=== PATIENT | male | born 1965 | race Caucasian/White ===

== ENCOUNTER 2025-02-01 14:09 | Emergency (ER) | payer OTHER, SELFPAY ==
[2025-02-01] VITALS (10 sets, daily range): BP systolic 79–130; BP diastolic 59–84; PULSE 72–107; RESP 11–16; TEMP 36.6–36.7; O2SAT 97–100; BMI 31.6
--- NOTE | 2025-02-01 14:14 | ECG_ITS ---
APPROVED REPORT Exam: Resting ECG HR:83 bpm ECG Measurements Heart Rate 83 AXES WV 168 P 50 QRSd 134 QRS -66 QT 401 T 42 QTc 441 Conclusion SINUS RHYTHM RIGHT BUNDLE BRANCH BLOCK [120+ ms QRS DURATION, UPRIGHT V1, 40+ ms S IN I/aVL/V4/V5/V6] LEFT ANTERIOR FASCICULAR BLOCK [QRS AXIS <= -45, QR IN I, RS IN II] Electronically signed by : SHANTEL BASSETT, 02/06/2025 13:28:33
--- NOTE | 2025-02-01 14:31 | CT_ITS ---
PROCEDURE INFORMATION: Exam: CTA Neck With Contrast Exam date and time: 02/01/2025 3:28 PM Age: 59 years old Clinical indication: Other: Balance issue, weakness, presyncope TECHNIQUE: Imaging protocol: Computed tomographic angiography of the neck with contrast. Exam focused on the cervical segments of the vasculature. 3D rendering (Not supervised by radiologist): MIP and/or 3D reconstructed images were created by the technologist. Radiation optimization: All CT scans at this facility use at least one of these dose optimization techniques: automated exposure control; mA and/or kV adjustment per patient size (includes targeted exams where dose is matched to clinical indication); or iterative reconstruction. Contrast material: ISOUVE 370; Contrast volume: 80 ml; Contrast route: INTRAVENOUS (IV); COMPARISON: CT HEAD/BRAIN WO CON 02/01/2025 3:26 PM FINDINGS: Right common carotid artery: No stenosis. No dissection or occlusion. Right internal carotid artery: No stenosis of the extracranial segment. No dissection or occlusion. Mild proximal right ICA noncalcified plaque. Right external carotid artery: No occlusion or stenosis of the origin. Left common carotid artery: No stenosis. No dissection or occlusion. Left internal carotid artery: Proximal left ICA noncalcified atherosclerosis, prominent for age causing up to mild, 40% stenosis, image 84 series 3, image 62 series 5. This segmental narrowing is approximately 1.3 cm from the bifurcation. Left external carotid artery: No occlusion or stenosis of the origin. Right vertebral artery: No stenosis. No dissection or occlusion. Left vertebral artery: To the extent visualized, patent cervical left vertebral artery. A portion of the V1 segment is not visualized due to artifact. Soft tissues: Normal. No significant soft tissue swelling. Bones/joints: [id number] cervical spine degenerative changes. Lungs: Calcified granulomata in the lung apices. IMPRESSION: 1. No acute vascular findings in the neck. 2. Mild, up to 40% left ICA stenosis due to noncalcified plaque. Proximal left ICA noncalcified plaque is prominent for age. 3. 0% right ICA stenosis. 4. To the extent visualized, the vertebral arteries are patent without stenoses. REFERENCES: NASCET CRITERIA. The degree of stenosis in the cervical segment of the internal carotid artery is based on NASCET criteria. Normal is no stenosis. Mild is less than 50% stenosis. Moderate is 50-69% stenosis. Severe is 70% to 99% stenosis. Total occlusion is no detectable patent lumen.
--- NOTE | 2025-02-01 14:31 | CT_ITS ---
PROCEDURE INFORMATION: Exam: CTA Head With Contrast, Arteriography Exam date and time: 02/01/2025 3:28 PM Age: 59 years old Clinical indication: Other: Balance issue, weakness, presyncope TECHNIQUE: Imaging protocol: Computed tomographic angiography of the head with contrast. Exam focused on the arteries. 3D rendering (Not supervised by radiologist): MIP and/or 3D reconstructed images were created by the technologist. Radiation optimization: All CT scans at this facility use at least one of these dose optimization techniques: automated exposure control; mA and/or kV adjustment per patient size (includes targeted exams where dose is matched to clinical indication); or iterative reconstruction. Contrast material: ISO 370; Contrast volume: 80 ml; Contrast route: INTRAVENOUS (IV); COMPARISON: CT HEAD/BRAIN WO CON 02/01/2025 3:26 PM FINDINGS: ANTERIOR CIRCULATION: Right internal carotid artery: The right ICA demonstrates mild atherosclerosis. Stenosis is mild segmentally in the petrous segment. Right middle cerebral artery: No occlusion or significant stenosis. No aneurysm. Right anterior cerebral artery: No occlusion or significant stenosis. No aneurysm. Left internal carotid artery: The left ICA demonstrates trace atherosclerosis not contributing to stenosis. Left middle cerebral artery: The left middle cerebral artery demonstrates a 3 mm severe segmental stenosis in the M1 segment. Otherwise mild M1 and M2 atherosclerosis. Left anterior cerebral artery: No occlusion or significant stenosis. No aneurysm. POSTERIOR CIRCULATION: Right vertebral artery: No occlusion or significant stenosis. No aneurysm. Left vertebral artery: No occlusion or significant stenosis. No aneurysm. Basilar artery: No occlusion or significant stenosis. No aneurysm. Right posterior cerebral artery: No occlusion or significant stenosis. No aneurysm. Left posterior cerebral artery: No occlusion or significant stenosis. No aneurysm. Brain: No definite mass, mass effect, or midline shift. Cerebral ventricles: No ventriculomegaly. Bones/joints: Unremarkable. No acute fracture. Soft tissues: Unremarkable. IMPRESSION: 1. No proximal intracranial arterial occlusion seen. 2. A severe segmental stenosis of the left MCA in the M1 segment.
--- NOTE | 2025-02-01 14:31 | CT_ITS ---
PROCEDURE INFORMATION: Exam: CTA Chest With Contrast Exam date and time: 02/01/2025 3:31 PM Age: 59 years old Clinical indication: Other: Balance issue, weakness, presyncope TECHNIQUE: Imaging protocol: Computed tomographic angiography of the chest with contrast. Exam focused on the arteries. 3D rendering (Not supervised by radiologist): MIP and/or 3D reconstructed images were created by the technologist. Radiation optimization: All CT scans at this facility use at least one of these dose optimization techniques: automated exposure control; mA and/or kV adjustment per patient size (includes targeted exams where dose is matched to clinical indication); or iterative reconstruction. Contrast material: ISOVUE 370; Contrast volume: 70 ml; Contrast route: INTRAVENOUS (IV); COMPARISON: CT ANGIO NECK 02/01/2025 3:28 PM FINDINGS: Pulmonary arteries: No PE. No evidence of cardiac strain. Aorta: Unremarkable. No aortic aneurysm. No aortic dissection. Lungs: Mild diffuse interlobular and intra lobular septal thickening. No distinct nodules or infiltrates. Pleural spaces: Unremarkable. No pneumothorax. No pleural effusion. Heart: Normal heart size. No pericardial fluid. Lymph nodes: Unremarkable. No enlarged lymph nodes. Adrenal glands: Thickened, nodular left adrenal gland without distinct measurable lesion. Attenuating at 43 Hounsfield units. Right gland is unremarkable. Bones/joints: Small (2-3 mm) sclerotic foci in the anterior T2 vertebral body, right posterior 5th rib, right lateral 7th rib. In the proximal sternal body. In the right acromion. Left humeral head. Soft tissues: Otherwise, no acute osseous or soft tissue abnormality. IMPRESSION: 1. Mild interstitial pulmonary edema. No distinct nodules or infiltrates. 2. Small (2-3 mm) sclerotic foci in the anterior T2 vertebral body, right posterior 5th rib, right lateral 7th rib. In the proximal sternal body. In the right acromion. Left humeral head. Nonspecific. May represent bone islands. If there is history of malignancy, may represent sclerotic metastatic disease. Recommend correlation.
--- NOTE | 2025-02-01 14:31 | CT_ITS ---
PROCEDURE INFORMATION: Exam: CT Head Without Contrast Exam date and time: 02/01/2025 3:26 PM Age: 59 years old Clinical indication: Other: Balance issue, weakness, presyncope TECHNIQUE: Imaging protocol: Computed tomography of the head without contrast. Radiation optimization: All CT scans at this facility use at least one of these dose optimization techniques: automated exposure control; mA and/or kV adjustment per patient size (includes targeted exams where dose is matched to clinical indication); or iterative reconstruction. COMPARISON: No relevant prior studies available. FINDINGS: Brain: Mature appearing most likely chronic left parietooccipital infarcts. No acute evolving territorial infarct or intracranial hemorrhage seen. Cerebral ventricles: There is a cavum septum pellucidum and cavum vergae, normal variant. Mild ex vacuo enlargement of the atrium and occipital horn of the left lateral ventricle. Pituitary gland and sella: A 3 mm hypodense likely cyst in the left aspect of the pituitary gland. Paranasal sinuses: [id number] mucosal thickening. Prior endoscopic sinus surgery. No fluid levels. Mastoid air cells: Visualized mastoid air cells are well aerated. Bones: Unremarkable. No acute fracture. Soft tissues: Unremarkable. IMPRESSION: 1. No acute intracranial abnormality seen. 2. 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
[2025-02-01 14:41] LABS: Basophils # 0.1 K/mm3 (0-0.2); Basophils % 0.4 % (0.1-2.0); Eosinophils # 0.2 Kmm3 (0.0-0.4); Eosinophils % 1.5 % (0.1-12.0); Hematocrit 37.9 % (42.0-52.0); Hemoglobin 11.5 g/dL (14.1-18.0); Immature Granulocytes # 0.06 10^3uL; Immature Granulocytes % 0.5 %; Lymphocytes # 2.2 K/mm3 (0.7-4.5); Lymphocytes % 18.7 % (10-50); Mean Corpuscular HGB Conc 30.3 g/dL (31.8-35.4); Mean Corpuscular Hemoglobin 25.8 pg (27.0-31.2); Mean Corpuscular Volume 85.2 fl (80-94); Mean Platelet Volume 9.2 fl (7.4-10.4); Monocytes # 0.8 K/mm3 (0.1-1.0); Monocytes % 7.1 % (1.7-9.3); Neutrophils # 8.4 K/mm3 (1.8-7.8); Neutrophils % 71.8 % (37.0-80.0); Nucleated Red Blood Cells # 0 10^3/uL; Nucleated Red Blood Cells % 0 %; Platelet Count 500 K/mm3 (142-424); Red Blood Count 4.45 M/mm3 (4.60-6.20); Red Cell Distribution Width 14.3 % (11.5-17.5); White Blood Count 11.7 K/mm3 (4.8-10.8)
--- NOTE | 2025-02-01 14:55 | HMH.EDGENADL ---
Discharge Plan Disposition Patient Disposition: Home, Self-Care Condition: Good Referrals Follow up/Referrals: Kendrick Holly APRN [Primary Care Provider] - See instructions Activity Restrictions/Add. Instructions Additional Instructions/Restrictions: As we discussed, please make sure you are drinking plenty of liquids and having at least 3 meals throughout the day containing protein. Please follow-up with your primary care doctor as well as your neurologist. Please return with any new or worsening symptoms. Clinical Impressions Clinical Impression: Orthostatic hypotension Print Language Print Language: Yi Discharge ED Provider: Jake Irene General Adult HPI <Tamiko Herron DO - Last Filed: 02/01/25 15:04> General Chief complaint: Dizziness Stated complaint: Poss. CVA Time Seen by Provider: 02/01/25 14:18 Mode of Arrival: Ambulatory Source of Information: Patient Description of Symptoms (Recalled from ER Triage Doc. by RN): patient states about 30 mins ago [place] and whe he got up he suddenly became lightheaded and dizzy. he reports the last 3-4 days he has had dizzines and been lethargic History of Present Illness HPI narrative: This patient is a 59-year-old male with history of prior CVA (October) with reported residual language and memory deficits, orthostatic hypotension on midodrine, T2DM presenting to the emergency department for evaluation with concern for dizziness and possible syncopal episode today. According to the patient's family, he has had issues with orthostatic hypotension in the past and it was felt to be related to medications he was on including amitriptyline for restless leg. They had stopped this and he had been doing okay, but it acutely started again over the last several days and he has been very weak with lightheadedness especially when he gets up and gets moving around. He denies any true vertiginous type symptoms. He states that he feels very lightheaded and like he is going to pass out. Today, his notes that he became very [place] and had an episode in which he was out of it with reported twitching of his face. His states that with his history of strokes, she became panicked. This only lasted for a few seconds and then he returned to his normal baseline, but he was very generally weak walking to the car. No headaches, visual disturbance, unilateral numbness or tingling, chest pain, shortness of breath, abdominal pain, nausea, vomiting or changes in bowel movements, or other concerns. Related Data Allergies Allergy/AdvReac Type Severity Reaction Status Date / Time INGREDIENT: NO KNOWN - NO Allergy Unknown Uncoded 08/28/17 15:03 KNOWN DRUG ALLERGY PFSH <Tamiko Herron DO - Last Filed: 02/01/25 15:04> [facility] Disclaimer: The information contained in this section may have been updated after the patient was seen, as this information can be updated by other users. Social History (Updated 02/01/25 @ 15:04 by Tamiko Herron DO) Smoking Status: Current every day smoker alcohol intake: never current occupational status: retired Travel in the last 8 weeks?: None <Tamiko Herron DO - Last Filed: 02/01/25 15:04> ROS Obtained: Yes All systems reviewed & no additional complaints except as documented Physical Exam <Tamiko Herron DO - Last Filed: 02/01/25 15:04> General General appearance: alert, in no apparent distress and obese Head Head exam: atraumatic and normocephalic Eye Eye exam: Present normal appearance, PERRL and EOMI ENT ENT exam: Present normal exam, normal oropharynx, mucous membranes moist and normal external ear exam Neck Neck exam: Present normal inspection, full ROM and trachea midline; Absent tenderness Chest Chest inspection: Present normal inspection and symmetric chest wall rise; Absent tenderness Respiratory Respiratory exam: Present normal lung sounds bilaterally; Absent respiratory distress, wheezes, stridor or accessory muscle use Cardiovascular Cardiovascular exam: Present regular rate and normal rhythm Abdominal Exam Abdominal exam: Present soft; Absent distention, tenderness or guarding Extremities Exam Extremities exam: Present normal inspection, full ROM and normal capillary refill; Absent tenderness or edema Back Exam Back exam: Present normal inspection and full ROM; Absent tenderness Neurological Exam Neurological exam: Present alert, oriented X3, CN II-XII intact and normal gait; Absent motor sensory deficit Psychiatric Psychiatric exam: Present normal affect and normal mood Skin Skin exam: Present warm and dry Medical Decision Making <Tamiko Herron DO - Last Filed: 02/01/25 15:04> Medical Records Medical records reviewed: Yes I reviewed the patient's medical records. Screening: Per USPSTF and CDC recommendations, given the prevalence of disease in our region, it is our hospital?s policy to screen for HIV and viral Hepatitis for all patients aged 18 and over and those with ongoing risk factors. Bj Inquiry Pt receiving controlled substance: No Vital Signs: 02/01/25 14:16 02/01/25 14:30 02/01/25 14:48 Temperature 97.9 F Temperature Source Oral Pulse Rate 86 Pulse Rate [Orthostatic Lying Radial] 82 Pulse Rate [Orthostatic Sitting Right Radial] 101 H Pulse Rate [Orthostatic Standing Right Radial] 107 H Pulse Rate [Right Radial] 96 H Respiratory Rate 15 16 Blood Pressure 116/72 Blood Pressure [Orthostatic Lying Right Arm] 105/66 L Blood Pressure [Orthostatic Sitting Right Arm] 91/64 L Blood Pressure [Orthostatic Standing Right Arm] 79/59 L Blood Pressure [Right Arm] 112/80 Blood Pressure Mean [Right Arm] 90 Blood Pressure Source [Right Arm] Automatic Cuff Blood Pressure Position [Right Arm] Supine 02 Sat by Pulse Oximetry 100 98 Oxygen Delivery Method Room Air 02/01/25 15:00 02/01/25 16:00 02/01/25 16:30 Temperature Temperature Source Pulse Rate 78 82 74 Pulse Rate [Orthostatic Lying Radial] Pulse Rate [Orthostatic Sitting Right Radial] Pulse Rate [Orthostatic Standing Right Radial] Pulse Rate [Right Radial] Respiratory Rate 16 16 16 Blood Pressure 110/73 119/72 115/66 Blood Pressure [Orthostatic Lying Right Arm] Blood Pressure [Orthostatic Sitting Right Arm] Blood Pressure [Orthostatic Standing Right Arm] Blood Pressure [Right Arm] Blood Pressure Mean [Right Arm] Blood Pressure Source [Right Arm] Blood Pressure Position [Right Arm] 02 Sat by Pulse Oximetry 99 100 100 Oxygen Delivery Method Room Air 02/01/25 17:01 02/01/25 17:30 02/01/25 18:01 Temperature Temperature Source Pulse Rate 78 78 72 Pulse Rate [Orthostatic Lying Radial] Pulse Rate [Orthostatic Sitting Right Radial] Pulse Rate [Orthostatic Standing Right Radial] Pulse Rate [Right Radial] Respiratory Rate 11 L 13 Blood Pressure 125/81 119/64 130/84 Blood Pressure [Orthostatic Lying Right Arm] Blood Pressure [Orthostatic Sitting Right Arm] Blood Pressure [Orthostatic Standing Right Arm] Blood Pressure [Right Arm] Blood Pressure Mean [Right Arm] Blood Pressure Source [Right Arm] Blood Pressure Position [Right Arm] 02 Sat by Pulse Oximetry 100 97 100 Oxygen Delivery Method 02/01/25 18:35 Temperature 98.0 F Temperature Source Pulse Rate 76 Pulse Rate [Orthostatic Lying Radial] Pulse Rate [Orthostatic Sitting Right Radial] Pulse Rate [Orthostatic Standing Right Radial] Pulse Rate [Right Radial] Respiratory Rate 16 Blood Pressure 130/84 Blood Pressure [Orthostatic Lying Right Arm] Blood Pressure [Orthostatic Sitting Right Arm] Blood Pressure [Orthostatic Standing Right Arm] Blood Pressure [Right Arm] Blood Pressure Mean [Right Arm] Blood Pressure Source [Right Arm] Blood Pressure Position [Right Arm] 02 Sat by Pulse Oximetry Oxygen Delivery Method Lab Data Lab results reviewed: Yes I reviewed the patient's lab results. Lab Results 02/01/25 14:10: WBC 11.7 H, RBC 4.45 L, Hgb 11.5 L, Hct 37.9 L, MCV 85.2, MCH 25.8 L, MCHC 30.3 L, RDW 14.3, Plt Count 500 H, MPV 9.2, Neut % (Auto) 71.8, Lymph % (Auto) 18.7, [place] % (Auto) 7.1, Eos % (Auto) 1.5, Baso % (Auto) 0.4, Neut # (Auto) 8.4 H, Lymph # (Auto) 2.2, [place] # (Auto) 0.8, Eos # (Auto) 0.2, Baso # (Auto) 0.1, Sodium 136, Potassium 4.5, Chloride 105, Carbon Dioxide 24, Anion Gap 11.5, BUN 24 H, Creatinine 1.90 H, Estimated Creat Clear 71, Estimated GFR 37 L, Est GFR ( Amer) 44 L, Glucose 210 H, Calcium 9.2, Phosphorus 3.9, Magnesium 2.1, Total Bilirubin 0.4, AST 25, ALT 20, Alkaline Phosphatase 139 H, Troponin I < 0.01, NT-Pro-B Natriuret Pep < 20.0, Total Protein 7.0, Albumin 4.3, Globulin 2.7, Albumin/Globulin Ratio 1.6, TSH 0.69, Thyroxine (T4) 13.1 H, HCV Ab ANABELLA w/Rflx PCR Qn Negative, HIV Ag/Ab Combo Qual Negative 02/01/25 14:52: Urine Color Yellow, Urine Appearance Clear, Urine pH 6.0, Ur Specific [place] 1.015, Urine Protein Negative, Urine Glucose (UA) 3+, Urine Ketones Negative, Urine Blood Negative, Urine Nitrate Negative, Urine Bilirubin Negative, Urine Urobilinogen 1.0, Ur Leukocyte Esterase Negative, Urine RBC None, Urine WBC Occasional, Ur Squamous Epith Cells Occasional, Urine Bacteria Trace 02/01/25 18:04: Troponin I < 0.01 02/01/25 14:10 02/01/25 14:10 Orders (Tests/Meds): ED MEDICATIONS Discontinued Medications Generic Name Dose Route Start Last Admin Trade Name Freq PRN Reason Stop Dose Admin Lactated Ringer's 1,000 mls @ 999 mls/hr 02/01/25 14:57 02/01/25 15:19 Lactated Ringer's 1000 Ml Bag IV 02/01/25 15:57 999 mls/hr .Q1H1M ONE Administration Iopamidol 150 ml 02/01/25 15:26 02/01/25 15:28 Iopamidol-370 (76%);100ml Bottle IV 02/01/25 15:27 150 ml ONCE ONE Administration Sodium Chloride 10 ml 02/01/25 15:26 02/01/25 15:28 Sodium Chloride 0.9% 10ml Syr (Rad Only) IV 03/03/25 15:25 10 ml NEEDED PRN Administration Maintain IV Site Sodium Chloride 50 ml 02/01/25 15:26 02/01/25 15:28 0.9 % Sodium Chloride 50 Ml Vial IV 02/01/25 15:27 50 ml ONCE ONE Administration ORDERS Category Date Time Status CT angio chest PE protocol Stat Cat Scan 02/01/25 14:[address] angio head Stat Cat Scan 02/01/25 14:[address] angio neck Stat Cat Scan 02/01/25 14:[address] head/brain wo con Stat Cat Scan 02/01/25 14:31 Completed BNP [NT Pro Brain Natriuretic Pep.] Stat Lab 02/01/25 14:10 Completed Complete Blood Count Auto Diff Stat Lab 02/01/25 14:10 Completed Comprehensive Metabolic Panel Stat Lab 02/01/25 14:10 Completed HIV Combo Stat Lab 02/01/25 14:10 Completed Hepatitis C Ab Qual. W/ RFX Stat Lab 02/01/25 14:10 Completed MAG [Magnesium] Stat Lab 02/01/25 14:10 Completed PHOS [Phosphorous] Stat Lab 02/01/25 14:10 Completed T4 (Thyroxine) Stat Lab 02/01/25 14:10 Completed TSH [Thyroid Stimulating Hormone] Stat Lab 02/01/25 14:10 Completed Trop I [Troponin I] Stat Lab 02/01/25 14:10 Completed Troponin I Q3H Lab 02/01/25 18:04 Completed UA [Urinalysis and Microscopic] Stat Lab 02/01/25 14:52 Completed ECG Data Tracing #1: I reviewed this ECG and interpreted as documented below: Normal sinus rhythm with a ventricular rate of 83 bpm. Bundle branch block. No acute ST changes concerning for ischemia ECG initial impression date: 02/01/25 ECG initial impression time: 14:18 Medical Decision Narrative: In summary, this patient is a 59-year-old male presenting to the Emergency Department for evaluation of lightheadedness and syncopal episode today. Differential diagnoses considered include but are not limited to orthostatic hypotension, dehydration, KHANG, medication adverse reaction, CVA, PE, dysrhythmia. Ruling out the most morbid conditions drove assessment. It should be noted patient's history includes prior CVA, diabetes, orthostatic hypotension which may or may not be at goal therapy. This complicates all aspects of care by increasing patient's risk for morbidity. On exam, the patient is sitting upright in no acute distress no focal deficits. Nothing on exam to suggest acute CVA with an NIH stroke scale of 0. Cardiopulmonary exam is reassuring, abdominal exam is benign. He does have significant positive orthostatic vital signs with a drop to 70 systolic when standing from normotension. Workup included broad lab evaluation to evaluate for infectious, metabolic, cardiac issues as a cause as well as CT head, CT angiogram head and neck, CTA PE protocol. Patient care signed out to the oncoming provider Dr. Irene pending workup <Jake Irene MD - Last Filed: 02/03/25 19:40> Vital Signs: 02/01/25 14:16 02/01/25 14:30 02/01/25 14:48 Temperature 97.9 F Temperature Source Oral Pulse Rate 86 Pulse Rate [Orthostatic Lying Radial] 82 Pulse Rate [Orthostatic Sitting Right Radial] 101 H Pulse Rate [Orthostatic Standing Right Radial] 107 H Pulse Rate [Right Radial] 96 H Respiratory Rate 15 16 Blood Pressure 116/72 Blood Pressure [Orthostatic Lying Right Arm] 105/66 L Blood Pressure [Orthostatic Sitting Right Arm] 91/64 L Blood Pressure [Orthostatic Standing Right Arm] 79/59 L Blood Pressure [Right Arm] 112/80 Blood Pressure Mean [Right Arm] 90 Blood Pressure Source [Right Arm] Automatic Cuff Blood Pressure Position [Right Arm] Supine 02 Sat by Pulse Oximetry 100 98 Oxygen Delivery Method Room Air 02/01/25 15:00 02/01/25 16:00 02/01/25 16:30 Temperature Temperature Source Pulse Rate 78 82 74 Pulse Rate [Orthostatic Lying Radial] Pulse Rate [Orthostatic Sitting Right Radial] Pulse Rate [Orthostatic Standing Right Radial] Pulse Rate [Right Radial] Respiratory Rate 16 16 16 Blood Pressure 110/73 119/72 115/66 Blood Pressure [Orthostatic Lying Right Arm] Blood Pressure [Orthostatic Sitting Right Arm] Blood Pressure [Orthostatic Standing Right Arm] Blood Pressure [Right Arm] Blood Pressure Mean [Right Arm] Blood Pressure Source [Right Arm] Blood Pressure Position [Right Arm] 02 Sat by Pulse Oximetry 99 100 100 Oxygen Delivery Method Room Air 02/01/25 17:01 02/01/25 17:30 02/01/25 18:01 Temperature Temperature Source Pulse Rate 78 78 72 Pulse Rate [Orthostatic Lying Radial] Pulse Rate [Orthostatic Sitting Right Radial] Pulse Rate [Orthostatic Standing Right Radial] Pulse Rate [Right Radial] Respiratory Rate 11 L 13 Blood Pressure 125/81 119/64 130/84 Blood Pressure [Orthostatic Lying Right Arm] Blood Pressure [Orthostatic Sitting Right Arm] Blood Pressure [Orthostatic Standing Right Arm] Blood Pressure [Right Arm] Blood Pressure Mean [Right Arm] Blood Pressure Source [Right Arm] Blood Pressure Position [Right Arm] 02 Sat by Pulse Oximetry 100 97 100 Oxygen Delivery Method 02/01/25 18:35 Temperature 98.0 F Temperature Source Pulse Rate 76 Pulse Rate [Orthostatic Lying Radial] Pulse Rate [Orthostatic Sitting Right Radial] Pulse Rate [Orthostatic Standing Right Radial] Pulse Rate [Right Radial] Respiratory Rate 16 Blood Pressure 130/84 Blood Pressure [Orthostatic Lying Right Arm] Blood Pressure [Orthostatic Sitting Right Arm] Blood Pressure [Orthostatic Standing Right Arm] Blood Pressure [Right Arm] Blood Pressure Mean [Right Arm] Blood Pressure Source [Right Arm] Blood Pressure Position [Right Arm] 02 Sat by Pulse Oximetry Oxygen Delivery Method Lab Data Lab Results 02/01/25 14:10: WBC 11.7 H, RBC 4.45 L, Hgb 11.5 L, Hct 37.9 L, MCV 85.2, MCH 25.8 L, MCHC 30.3 L, RDW 14.3, Plt Count 500 H, MPV 9.2, Neut % (Auto) 71.8, Lymph % (Auto) 18.7, [place] % (Auto) 7.1, Eos % (Auto) 1.5, Baso % (Auto) 0.4, Neut # (Auto) 8.4 H, Lymph # (Auto) 2.2, [place] # (Auto) 0.8, Eos # (Auto) 0.2, Baso # (Auto) 0.1, Sodium 136, Potassium 4.5, Chloride 105, Carbon Dioxide 24, Anion Gap 11.5, BUN 24 H, Creatinine 1.90 H, Estimated Creat Clear 71, Estimated GFR 37 L, Est GFR ( Amer) 44 L, Glucose 210 H, Calcium 9.2, Phosphorus 3.9, Magnesium 2.1, Total Bilirubin 0.4, AST 25, ALT 20, Alkaline Phosphatase 139 H, Troponin I < 0.01, NT-Pro-B Natriuret Pep < 20.0, Total Protein 7.0, Albumin 4.3, Globulin 2.7, Albumin/Globulin Ratio 1.6, TSH 0.69, Thyroxine (T4) 13.1 H, HCV Ab ANABELLA w/Rflx PCR Qn Negative, HIV Ag/Ab Combo Qual Negative 02/01/25 14:52: Urine Color Yellow, Urine Appearance Clear, Urine pH 6.0, Ur Specific [place] 1.015, Urine Protein Negative, Urine Glucose (UA) 3+, Urine Ketones Negative, Urine Blood Negative, Urine Nitrate Negative, Urine Bilirubin Negative, Urine Urobilinogen 1.0, Ur Leukocyte Esterase Negative, Urine RBC None, Urine WBC Occasional, Ur Squamous Epith Cells Occasional, Urine Bacteria Trace 02/01/25 18:04: Troponin I < 0.01 Orders (Tests/Meds): ED MEDICATIONS Discontinued Medications Generic Name Dose Route Start Last Admin Trade Name Freq PRN Reason Stop Dose Admin Lactated Ringer's 1,000 mls @ 999 mls/hr 02/01/25 14:57 02/01/25 15:19 Lactated Ringer's 1000 Ml Bag IV 02/01/25 15:57 999 mls/hr .Q1H1M ONE Administration Iopamidol 150 ml 02/01/25 15:26 02/01/25 15:28 Iopamidol-370 (76%);100ml Bottle IV 02/01/25 15:27 150 ml ONCE ONE Administration Sodium Chloride 10 ml 02/01/25 15:26 02/01/25 15:28 Sodium Chloride 0.9% 10ml Syr (Rad Only) IV 03/03/25 15:25 10 ml NEEDED PRN Administration Maintain IV Site Sodium Chloride 50 ml 02/01/25 15:26 02/01/25 15:28 0.9 % Sodium Chloride 50 Ml Vial IV 02/01/25 15:27 50 ml ONCE ONE Administration ORDERS Category Date Time Status CT angio chest PE protocol Stat Cat Scan 02/01/25 14:[address] angio head Stat Cat Scan 02/01/25 14:[address] angio neck Stat Cat Scan 02/01/25 14:[address] head/brain wo con Stat Cat Scan 02/01/25 14:31 Completed BNP [NT Pro Brain Natriuretic Pep.] Stat Lab 02/01/25 14:10 Completed Complete Blood Count Auto Diff Stat Lab 02/01/25 14:10 Completed Comprehensive Metabolic Panel Stat Lab 02/01/25 14:10 Completed HIV Combo Stat Lab 02/01/25 14:10 Completed Hepatitis C Ab Qual. W/ RFX Stat Lab 02/01/25 14:10 Completed MAG [Magnesium] Stat Lab 02/01/25 14:10 Completed PHOS [Phosphorous] Stat Lab 02/01/25 14:10 Completed T4 (Thyroxine) Stat Lab 02/01/25 14:10 Completed TSH [Thyroid Stimulating Hormone] Stat Lab 02/01/25 14:10 Completed Trop I [Troponin I] Stat Lab 02/01/25 14:10 Completed Troponin I Q3H Lab 02/01/25 18:04 Completed UA [Urinalysis and Microscopic] Stat Lab 02/01/25 14:52 Completed Medical Decision Narrative: In summary, this patient is a 59-year-old male presenting to the Emergency Department for evaluation of lightheadedness and syncopal episode today. Differential diagnoses considered include but are not limited to orthostatic hypotension, dehydration, KHANG, medication adverse reaction, CVA, PE, dysrhythmia. Ruling out the most morbid conditions drove assessment. It should be noted patient's history includes prior CVA, diabetes, orthostatic hypotension which may or may not be at goal therapy. This complicates all aspects of care by increasing patient's risk for morbidity. On exam, the patient is sitting upright in no acute distress no focal deficits. Nothing on exam to suggest acute CVA with an NIH stroke scale of 0. Cardiopulmonary exam is reassuring, abdominal exam is benign. He does have significant positive orthostatic vital signs with a drop to 70 systolic when standing from normotension. Workup included broad lab evaluation to evaluate for infectious, metabolic, cardiac issues as a cause as well as CT head, CT angiogram head and neck, CTA PE protocol. Patient care signed out to the oncoming provider Dr. Irene pending workup Jake Irene MD BARON: I assumed care of this patient from the previous emergency medicine physician. Workup reveals elevated creatinine as well as CTA with evidence of left MCA stenosis. [facility] and these findings are consistent with baseline. Furthermore, history and exam are consistent with prior episodes. I believe patient's right sided twitching is congruent with orthostatic changes precipitating hypotension which is now resolved. After administration of fluids patient feels much better is able to ambulate without difficulties. No further twitching symptoms. Patient as well as consulting facility agreeable with discharge with outpatient follow-up. Return precautions given. Critical Care <Tamiko Herron, - Last Filed: 02/01/25 15:04> Critical Care Time Critical Care Time: No
[2025-02-01 15:04] LABS: Albumin Level 4.3 g/dl (3.5-5.0); Chloride 105 mmol/L (98-107); Potassium 4.5 mmoL/L (3.5-5.1); Sodium 136 mmol/L (136-145)
[2025-02-01 15:06] LABS: Alanine Aminotransferase 20 U/L (12-78); Anion Gap 11.5 mEq/L (5-15); Aspartate Amino Transferase 25 U/L (17-59); Blood Urea Nitrogen 24 mg/dl (9-20); Carbon Dioxide 24 mmol/L (22.0-30.0); Creatinine Clearance Estimated 71 mL/min (50-200); Estimated Glomerular Filt Rate 37 ml/min (>60); GFR (African American) 44 ML/MIN (>60)
[2025-02-01 15:07] LABS: Albumin/Globulin Ratio 1.6 (1.1-1.8); Alkaline Phosphatase 139 U/L (38-126); Bilirubin,Total 0.4 mg/dl (0.2-1.3); Calcium 9.2 mg/dl (8.4-10.2); Globulin 2.7 g/dL (1.3-3.2); Glucose 210 mg/dl (74-100); Magnesium 2.1 mg/dl (1.6-2.3); Phosphorous 3.9 mg/dl (2.5-4.5)
[2025-02-01 15:13] LABS: Microscopic, Urine URINE MICROSCOPIC (MICROSCOPIC)
[2025-02-01 15:15] LABS: Appearance,Urine CLEAR (Clear); Bilirubin,Urine Negative (Negative); Blood, Urine Negative (Negative); Color,Urine YELLOW (Yellow); Glucose,Urine (UA) 3+ (Negative); Ketones,Urine Negative (Negative); Leukocyte Esterase,Urine Negative (Negative); Nitrate,Urine Negative (Negative); Protein,Urine Negative (Negative); Specific Gravity, Urine 1.015 (1.005-1.030)
[2025-02-01 15:17] LABS: NT Pro Brain Natriuretic Pep. < 20.0 pg/mL (0-125)
[2025-02-01 15:19] LABS: Troponin I < 0.01 ng/ml (0.00-0.034)
[2025-02-01] MEDS: LACTATED RINGERS 1000ML 1,000 ML 999 ML IV (15:19)
[2025-02-01 15:24] LABS: T4 (Thyroxine) 13.1 ug/dl (5.53-11.0)
[2025-02-01] MEDS: 0.9 % SODIUM CHLORIDE 50 ML VIAL IV (15:28)
[2025-02-01] MEDS: IOPAMIDOL-370 (76%);100ML BOTTLE 150 ML IV (15:28)
[2025-02-01] MEDS: SODIUM CHLORIDE 0.9% 10ML SYR (RAD ONLY) 10 ML IV (15:28)
[2025-02-01 15:38] LABS: Thyroid Stimulating Hormone 0.69 uIU/mL (0.465-4.68)
[2025-02-01 15:40] LABS: Bacteria,Urine Trace /lpf; Squamous Epithelial Cell,Urine Occasional #/hpf (0-5); WBC,Urine Occasional #/hpf (0-3)
[2025-02-01 15:49] LABS: HIV Combo NEGATIVE (Negative)
[2025-02-01 15:57] LABS: Hepatitis C Ab Qual. W/ RFX NEGATIVE (Negative)
--- NOTE | 2025-02-01 17:54 | PC.NURSE ---
calling Rochelle at this time.
--- NOTE | 2025-02-01 18:00 | PC.NURSE ---
[facility] will call back at this time.
--- NOTE | 2025-02-01 18:01 | PC.NURSE ---
pavithra on phone with [facility] stroke navigator
[2025-02-01 18:46] LABS: Troponin I < 0.01 ng/ml (0.00-0.034)
== END 2025-02-01 18:37 | disposition home or self-care (01) ==
PROVIDERS: Emergency Medicine; Emergency Provider Emergency Medicine; PCP Nurse Practitioner Family
DX: I95.1 Orthostatic hypotension (principal); R42 Dizziness and giddiness; I45.10 Unspecified right bundle-branch block; E11.9 Type 2 diabetes mellitus without complications; F17.210 Nicotine dependence, cigarettes, uncomplicated; Z86.73 Personal history of transient ischemic attack (TIA), and cerebral infarction without residual deficits; Z11.59 Encounter for screening for other viral diseases; Z11.4 Encounter for screening for human immunodeficiency virus [HIV]
CPT/HCPCS: 70450; 70496; 70498; 71275; 80053; 81001; 83735; 83880; 84100; 84436; 84443; 84484; 85025; 86803; 87389; 93005; 96360; 99285; J7120; Q9967